=== PATIENT | male | born 1940 | race Caucasian/White ===

== ENCOUNTER → 2021-04-20 13:12 | Outpatient (BNVA) | payer OTHER, SELFPAY | PROVIDERS: Referring Provider Family Medicine Geriatric Medicine; Visit Provider Nurse Practitioner | DX: R51.9 Headache, unspecified (principal); G50.0 Trigeminal neuralgia; F17.200 Nicotine dependence, unspecified, uncomplicated | CPT/HCPCS: 99203; 99204 ==